=== PATIENT | female | born 1990 | race Hispanic/Latino ===

== ENCOUNTER 2021-06-28 05:36 | Inpatient (IN) | payer OTHER, SELFPAY ==
[2021-06-28] MEDS ORDERED: Boostrix 0.5 ML (Tdap) VIAL ONE (05:41)
[2021-06-28] MEDS ORDERED: CEFAZOLIN 1 GM VIAL ONE ×3 (05:41→17:33)
[2021-06-28] MEDS ORDERED: Ketamine 50 MG/ML (10ML VIAL) ONE (05:57)
[2021-06-28 06:01] LABS: #Basophils 0.1 thou/uL (0.0-0.2); #Eosinphils 0.2 thou/uL (0.0-0.7); #Lymphocytes 3.8 thou/uL (1.20-3.40); #Monocytes 0.5 thou/uL (0.11-0.59); #Neutrophils 9.1 thou/uL (1.40-6.50); %Basophils 0.6 % (0.0-1.0); %Eosinophils 1.7 % (0.0-10.0); %Lymphocytes 27.6 % (21.0-51.0); %Monocytes 3.8 % (0.0-10.0); %Neutrophils 66.2 % (42.0-75.0); Hemoglobin 14.1 g/dL (12.0-16.0); Mean Corpuscular HGB CONC 34.9 g/dL (32.0-36.0); Mean Corpuscular Hemoglobin 31.1 pg (27.0-31.0); Mean Corpuscular Volume 89.1 fL (78.0-98.0); Mean Platelet Volume 7.8 fL (7.4-10.4); Platelet Count 378 thou/uL (130-400); RBC Distribution Width 11.9 % (11.5-14.5); Red Blood Cell (RBC) Count 4.54 mill/uL (4.20-5.40); White Blood Cell (WBC) Count 13.7 thou/uL (4.8-10.8)
[2021-06-28 06:27] LABS: Acetaminophen Less than 6.0 mcg/mL (10.0-30.0); Alcohol Less than 10 mg/dL (Less than 10); Salicylate Less than 8.0 mg/dL (15.0-30.0)
[2021-06-28 07:19] LABS: SARS-CoV-2 NAA Rapid Test Not Detected (NotDetected)
[2021-06-28] MEDS ORDERED: Dextrose 50% Abboject 50 ML SYRINGE SLOW IVP PRN (07:35)
[2021-06-28] MEDS ORDERED: hydrALAZINE 20 MG/ML VIAL SLOW IVP PRN (07:35)
[2021-06-28] MEDS ORDERED: Dextrose 5% in Water 1,000 ML IV PRN (07:35)
[2021-06-28] MEDS ORDERED: traMADol HCl 50 MG TAB PO PRN (07:37)
[2021-06-28] MEDS ORDERED: Cyclobenzaprine 10 MG TAB PO PRN (07:37)
[2021-06-28] MEDS ORDERED: Sodium Chloride 0.9% 1,000 ML IV SCH (07:45)
[2021-06-28] MEDS ORDERED: Fentanyl 100 MCG/2 ML VIAL ONE ×7 (07:49→19:44)
[2021-06-28] MEDS ORDERED: Ketorolac Tromethamine 30 MG/ML VIAL ONE (07:49)
[2021-06-28 07:51] LABS: BHCG - Serum Negative (NEGATIVE); Pregs Control Background? CLEAR/WHITE (CLR/WHITE); Pregs Control Bar Appear? YES (CONTROL BAR)
[2021-06-28] MEDS ORDERED: Fentanyl 250 MCG/5 ML VIAL ONE (07:51)
[2021-06-28] MEDS ORDERED: HYDROmorphone 2 MG/ML VIAL ONE (07:51)
[2021-06-28] MEDS ORDERED: Phenylephrine 10 MG/ML VIAL ONE (07:52)
[2021-06-28] MEDS ORDERED: SUGAMMADEX SODIUM 200 MG/2 ML VIAL ONE (07:52)
[2021-06-28] MEDS ORDERED: Albumin 5% 500 ML ONE (07:52)
[2021-06-28 07:56] LABS: Albumin 3.6 g/dL (3.5-5.0)
[2021-06-28 07:57] LABS: Chloride 109 mmol/L (98-107); Potassium 3.3 mmol/L (3.5-5.1)
[2021-06-28 07:58] LABS: Calcium 8.1 mg/dL (7.8-10.44); Sodium 137 mmol/L (136-145)
[2021-06-28 07:59] LABS: Globulin 2.8 g/dL (2.4-3.5); Glucose 143 mg/dL (70-105); Protein, Total 6.4 g/dL (6.0-8.3)
[2021-06-28 08:00] LABS: Anion Gap 14 mmol/L (10-20); Bilirubin, Total 0.2 mg/dL (0.2-1.2); Carbon Dioxide 17 mmol/L (22-29)
[2021-06-28 08:01] LABS: Alkaline Phosphatase 113 U/L (40-110)
[2021-06-28 08:02] LABS: Calc. Creatinine Clearance 0 mL/min (70-130)
[2021-06-28 08:03] LABS: BUN (Urea Nitrogen) 13 mg/dL (7.0-18.7)
[2021-06-28 08:04] LABS: AST (SGOT) 313 U/L (5-34)
[2021-06-28 08:05] LABS: ALT (SGPT) 204 U/L (8-55); CK (CPK) 207 U/L (29-168)
[2021-06-28 08:09] LABS: Bacteria/HPF None Seen HPF (None Seen); Bilirubin Negative (Negative); Blood, Urine 2+ (Negative); Clarity Clear (Clear); Glucose, Urine (Dipstick) Normal (Negative); Ketone, Urine Negative (Negative); Leukocyte Negative Leu/uL (Negative); Nitrite Negative (Negative); Protein, Urine (Dipstick) 20 mg/dL (Neg-Trace); RBC/HPF Greater than 50 HPF (0-3); Specific Gravity, Urine 1.032 (1.002-1.036); Squamous Epithelial 0-3 HPF (0-3); Urobilinogen Normal mg/dL (Less than 2); WBC/HPF 0-3 HPF (0-3)
[2021-06-28 08:18] LABS: Amphetamine Not Detected (NotDetected); Barbiturates Screen Not Detected (NotDetected); Benzodiazepine Screen Not Detected (NotDetected); Cocaine Metabolite Screen Not Detected (NotDetected); Methadone Not Detected (NotDetected); Methamphetamine Not Detected (NotDetected); Opiate Screen Not Detected (NotDetected); Oxycodone Screen Not Detected (NotDetected); Phencyclidine (PCP) Not Detected (NotDetected); THC/Cannabinoid Screen Not Detected (NotDetected); Tricyclic Screen Not Detected (NotDetected)
[2021-06-28] MEDS ORDERED: Glycopyrrolate 0.2 MG/ML 5 ML SYRINGE ONE (08:58)
[2021-06-28] MEDS ORDERED: PROPOFOL 200 MG/20 ML VIAL ONE (08:58)
[2021-06-28] MEDS ORDERED: Metoprolol Tartrate 5 MG/5 ML VIAL ONE (08:58)
[2021-06-28] MEDS ORDERED: Lidocaine 1% PF 5 ML VIAL ONE (08:58)
[2021-06-28] MEDS ORDERED: Succinylcholine 200 MG/10 ml SYRINGE FS ONE (08:58)
[2021-06-28] MEDS ORDERED: Ondansetron PF 4 MG/2 ML Vial ONE ×3 (08:58→17:44)
[2021-06-28] MEDS ORDERED: Dexamethasone 20 MG/5 ML VIAL ONE (08:58)
[2021-06-28] MEDS ORDERED: Rocuronium Bromide 10 MG/ML (10ML VIAL) ONE (08:58)
[2021-06-28] MEDS ORDERED: Vecuronium 10 MG VIAL ONE (08:58)
[2021-06-28] MEDS ORDERED: Iopamidol-370 76% 500 ML 1 ML ONE (10:38)
[2021-06-28] MEDS ORDERED: Potassium Chloride 40 MEQ in Sodium Chloride 0.9% 250 ML 250 ML IVPB SCH (14:15)
[2021-06-28] MEDS ORDERED: PROPOFOL 20 ML ONE (18:09)
[2021-06-28] MEDS ORDERED: Non-Formulary Medication 1 EACH PO PRN (19:35)
[2021-06-28] MEDS ORDERED: Promethazine HCl 25 MG/ML VIAL IM/IV PRN (19:45)
[2021-06-28] MEDS ORDERED: Ondansetron HCl/PF 4 MG/2 ML Vial IVP PRN (19:45)
[2021-06-28 19:57] LABS: Platelet Count 301 thou/uL (130-400)
[2021-06-28 20:05] LABS: Anion Gap 16 mmol/L (10-20); BUN (Urea Nitrogen) 9 mg/dL (7.0-18.7); Calc. Creatinine Clearance 0 mL/min (70-130); Calcium 7.7 mg/dL (7.8-10.44); Carbon Dioxide 17 mmol/L (22-29); Chloride 109 mmol/L (98-107); Glucose 188 mg/dL (70-105); Magnesium 1.7 mg/dL (1.6-2.6); Potassium 4.3 mmol/L (3.5-5.1); Sodium 138 mmol/L (136-145)
[2021-06-28] MEDS: Famotidine 20 MG TAB PO SCH ×2 (21:28→21:57)
[2021-06-28] MEDS: Gabapentin 100 MG CAP PO SCH ×2 (21:28→21:57)
[2021-06-28] MEDS: Senokot S 8.6-50 MG TAB PO SCH ×2 (21:29→21:56)
[2021-06-28] MEDS: Acetaminophen 500 MG TAB PO SCH ×2 (21:29→21:58)
[2021-06-28] MEDS: Polyethylene Glycol 3350 17 GM Packet PO SCH (21:29)
[2021-06-28] MEDS: Morphine 4 MG/ML VIAL SLOW IVP PRN (21:56)
[2021-06-28] MEDS: traMADol HCl 50 MG TAB PO SCH (21:57)
[2021-06-28] MEDS: traMADol HCl 50 MG TAB PO PRN (21:58)
[2021-06-28 22:02] LABS: Lactic Acid 8.4 mmol/L (0.5-2.2)
[2021-06-28] MEDS ORDERED: Magnesium 2 GM/50 ML 2 GM in Premix Bag 1 BAG IVPB SCH (22:30)
[2021-06-28] MEDS ORDERED: Magnesium Sulfate 2 GM in Sodium Chloride 0.9% 100 ML IVPB SCH (22:30)
[2021-06-28 23:30] LABS: Hemoglobin 11.4 g/dL (12.0-16.0); Mean Corpuscular HGB CONC 34.3 g/dL (32.0-36.0); Mean Corpuscular Hemoglobin 30.4 pg (27.0-31.0); Mean Corpuscular Volume 88.6 fL (78.0-98.0); Mean Platelet Volume 7.3 fL (7.4-10.4); Platelet Count 241 thou/uL (130-400); RBC Distribution Width 12.9 % (11.5-14.5); Red Blood Cell (RBC) Count 3.74 mill/uL (4.20-5.40); White Blood Cell (WBC) Count 14.1 thou/uL (4.8-10.8)
[2021-06-28 23:50] LABS: Lactic Acid 6.6 mmol/L (0.5-2.2)
[2021-06-29] MEDS: Morphine 4 MG/ML VIAL SLOW IVP PRN ×4 (00:03→08:26)
[2021-06-29] MEDS: Sodium Chloride 0.9% 1,000 ML IV SCH ×3 (00:03→18:24)
[2021-06-29] MEDS: Ondansetron PF 4 MG/2 ML Vial IVP PRN (00:03)
[2021-06-29] MEDS: CEFAZOLIN 2 GM in Sodium Chloride 0.9% 100 ML IVPB SCH ×2 (02:26→09:59)
[2021-06-29] MEDS: traMADol HCl 50 MG TAB PO SCH ×2 (02:31→10:00)
[2021-06-29] MEDS: Acetaminophen 500 MG TAB PO SCH (06:08)
[2021-06-29 07:52] LABS: #Lymphocytes 1.8 thou/uL (1.20-3.40); #Monocytes 1.4 thou/uL (0.11-0.59); #Neutrophils 8.9 thou/uL (1.40-6.50); %Basophils 0.1 % (0.0-1.0); %Eosinophils 0.1 % (0.0-10.0); %Lymphocytes 15.1 % (21.0-51.0); %Monocytes 11.5 % (0.0-10.0); %Neutrophils 73.2 % (42.0-75.0); Hemoglobin 10.1 g/dL (12.0-16.0); Mean Corpuscular HGB CONC 34.7 g/dL (32.0-36.0); Mean Corpuscular Hemoglobin 30.3 pg (27.0-31.0); Mean Corpuscular Volume 87.3 fL (78.0-98.0); Mean Platelet Volume 7.6 fL (7.4-10.4); Platelet Count 248 thou/uL (130-400); RBC Distribution Width 13.1 % (11.5-14.5); Red Blood Cell (RBC) Count 3.34 mill/uL (4.20-5.40); White Blood Cell (WBC) Count 12.1 thou/uL (4.8-10.8)
[2021-06-29 08:01] LABS: Lactic Acid 3.5 mmol/L (0.5-2.2)
[2021-06-29 08:03] LABS: PTT 29.9 sec (22.9-36.1)
[2021-06-29 08:04] LABS: Prothrombin Time 13.4 sec (12.0-14.7)
[2021-06-29 08:15] LABS: Anion Gap 15 mmol/L (10-20); BUN (Urea Nitrogen) 7 mg/dL (7.0-18.7); CK (CPK) 1822 U/L (29-168); Calc. Creatinine Clearance 180 mL/min (70-130); Calcium 7.8 mg/dL (7.8-10.44); Carbon Dioxide 17 mmol/L (22-29); Chloride 105 mmol/L (98-107); Glucose 166 mg/dL (70-105); Magnesium 2.2 mg/dL (1.6-2.6); Phosphorus 2.2 mg/dL (2.3-4.7); Potassium 4.1 mmol/L (3.5-5.1); Sodium 133 mmol/L (136-145)
[2021-06-29] MEDS: Famotidine 20 MG TAB PO SCH ×2 (08:23→21:17)
[2021-06-29] MEDS: Senokot S 8.6-50 MG TAB PO SCH ×2 (08:23→21:18)
[2021-06-29] MEDS: Gabapentin 100 MG CAP PO SCH (08:24)
[2021-06-29] MEDS: Polyethylene Glycol 3350 17 GM Packet PO SCH ×2 (08:25→19:06)
[2021-06-29] MEDS ORDERED: FLU VACC QS2021-22(6MOS UP)/PF 60 MCG/0.5 ML SYRINGE IM ONE (09:00)
[2021-06-29] MEDS: traMADol HCl 50 MG TAB PO PRN (10:00)
[2021-06-29] MEDS ORDERED: Acetaminophen/Codeine 30-300mg Tablet PO PRN (10:32)
[2021-06-29] MEDS ORDERED: Gabapentin 100 MG CAP PO SCH (10:33)
[2021-06-29] MEDS: Gabapentin 300 MG CAP PO SCH ×4 (10:38→23:09)
[2021-06-29] MEDS ORDERED: Sodium Phosphate 30 MMOL in Sodium Chloride 0.9% 250 ML 250 ML IVPB SCH (11:00)
[2021-06-29] MEDS: Acetaminophen/Codeine 30-300mg Tablet PO SCH ×3 (11:35→23:16)
[2021-06-29] MEDS: Acetaminophen 325 MG TAB PO SCH ×3 (11:35→23:16)
[2021-06-29] MEDS ORDERED: Acetaminophen 500 MG TAB PO SCH (12:00)
[2021-06-29 14:37] LABS: Actual Bicarbonate (HCO3a) 20.1 mEq/L (22-28); Analyzer IN Cardio OR; Base Excess (BEa) -6.3 mEq/L (-2.0 to +3.0); CO2 Tension 43.9 mmHg (35.0-45.0); Calcium, Ionized (arterial) 1.07 mmol/L (1.12-1.30); Carboxyhemoglobin (COHb) 0.1 gm% (0.0-3.0); Hemoglobin (Hb) 10.5 g/dL (12.0-16.0); O2 Tension (PaO2), arterial 83.1 mmHg (80.0-100.0); Potassium - ABG Lab 4.38 mmol/L (3.70-5.30); Puncture Site Arterial Line; pH, Arterial 7.28 (7.35-7.45)
[2021-06-29] MEDS ORDERED: Morphine 4 MG/ML VIAL SLOW IVP PRN ×2 (21:19)
[2021-06-29] MEDS ORDERED: Sodium Chloride 0.9% 500 ML IV SCH (21:30)
[2021-06-29 22:01] LABS: Anion Gap 13 mmol/L (10-20); BUN (Urea Nitrogen) 6 mg/dL (7.0-18.7); Calc. Creatinine Clearance 217 mL/min (70-130); Calcium 7.4 mg/dL (7.8-10.44); Carbon Dioxide 19 mmol/L (22-29); Chloride 106 mmol/L (98-107); Glucose 124 mg/dL (70-105); Magnesium 2.1 mg/dL (1.6-2.6); Potassium 3.6 mmol/L (3.5-5.1); Sodium 134 mmol/L (136-145)
[2021-06-29 22:06] LABS: Phosphorus 1.8 mg/dL (2.3-4.7)
[2021-06-29 22:18] LABS: Hemoglobin 7.6 g/dL (12.0-16.0)
[2021-06-29] MEDS ORDERED: Potassium Phosphate 30 MMOL in Sodium Chloride 0.9% 250 ML 250 ML IVPB SCH (23:00)
[2021-06-30 03:16] LABS: #Eosinphils 0.1 thou/uL (0.0-0.7); #Lymphocytes 2.6 thou/uL (1.20-3.40); #Monocytes 0.9 thou/uL (0.11-0.59); #Neutrophils 7.2 thou/uL (1.40-6.50); %Eosinophils 0.5 % (0.0-10.0); %Lymphocytes 24.5 % (21.0-51.0); %Monocytes 7.9 % (0.0-10.0); %Neutrophils 67.1 % (42.0-75.0); Hemoglobin 8.2 g/dL (12.0-16.0); Mean Corpuscular HGB CONC 35.6 g/dL (32.0-36.0); Mean Corpuscular Hemoglobin 31.1 pg (27.0-31.0); Mean Corpuscular Volume 87.3 fL (78.0-98.0); Mean Platelet Volume 7.3 fL (7.4-10.4); Platelet Count 221 thou/uL (130-400); RBC Distribution Width 12.9 % (11.5-14.5); Red Blood Cell (RBC) Count 2.62 mill/uL (4.20-5.40); White Blood Cell (WBC) Count 10.7 thou/uL (4.8-10.8)
[2021-06-30 03:54] LABS: Anion Gap 11 mmol/L (10-20); BUN (Urea Nitrogen) 5 mg/dL (7.0-18.7); CK (CPK) 1222 U/L (29-168); Calc. Creatinine Clearance 232 mL/min (70-130); Calcium 7.3 mg/dL (7.8-10.44); Carbon Dioxide 22 mmol/L (22-29); Chloride 107 mmol/L (98-107); Glucose 125 mg/dL (70-105); Phosphorus 2.9 mg/dL (2.3-4.7); Potassium 3.8 mmol/L (3.5-5.1); Sodium 136 mmol/L (136-145)
[2021-06-30] MEDS: Acetaminophen/Codeine 30-300mg Tablet PO SCH ×3 (06:06→19:13)
[2021-06-30] MEDS: Acetaminophen 325 MG TAB PO SCH ×4 (06:09→23:12)
[2021-06-30] MEDS: Sodium Chloride 0.9% 1,000 ML IV SCH ×4 (06:09→22:05)
[2021-06-30] MEDS ORDERED: Ferrous Sulfate 325 MG TAB PO SCH (08:00)
[2021-06-30] MEDS: Gabapentin 300 MG CAP PO SCH ×3 (09:36→20:20)
[2021-06-30] MEDS: Famotidine 20 MG TAB PO SCH (09:36)
[2021-06-30] MEDS: Ascorbic Acid 500 mg Chewable Tablet PO SCH ×2 (09:36→20:20)
[2021-06-30] MEDS: Polyethylene Glycol 3350 17 GM Packet PO SCH (09:37)
[2021-06-30] MEDS: Senokot S 8.6-50 MG TAB PO SCH ×2 (09:37→20:20)
[2021-06-30] MEDS ORDERED: Ibuprofen 200 MG TAB PO SCH (11:15)
[2021-06-30] MEDS: Ibuprofen 200 MG TAB PO SCH ×2 (17:28→21:39)
[2021-06-30] MEDS: Ferrous Sulfate 325 MG TAB PO SCH (20:19)
[2021-07-01] MEDS: Acetaminophen/Codeine 30-300mg Tablet PO SCH ×4 (00:24→17:58)
[2021-07-01] MEDS: Sodium Chloride 0.9% 1,000 ML IV SCH ×2 (06:11→14:31)
[2021-07-01] MEDS: Acetaminophen 325 MG TAB PO SCH ×3 (06:13→17:58)
[2021-07-01] MEDS: Senokot S 8.6-50 MG TAB PO SCH ×2 (08:58→21:20)
[2021-07-01] MEDS: Gabapentin 300 MG CAP PO SCH ×3 (08:58→21:19)
[2021-07-01] MEDS: Ibuprofen 200 MG TAB PO SCH ×3 (08:58→21:34)
[2021-07-01] MEDS: Ascorbic Acid 500 mg Chewable Tablet PO SCH ×2 (08:59→21:20)
[2021-07-01] MEDS: Ferrous Sulfate 325 MG TAB PO SCH ×2 (08:59→21:20)
[2021-07-01] MEDS: Polyethylene Glycol 3350 17 GM Packet PO SCH (08:59)
[2021-07-02] MEDS: Acetaminophen/Codeine 30-300mg Tablet PO SCH ×2 (00:05→05:47)
[2021-07-02] MEDS: Acetaminophen 325 MG TAB PO SCH ×4 (00:05→18:23)
[2021-07-02] MEDS: Sodium Chloride 0.9% 1,000 ML IV SCH ×2 (00:21→07:02)
[2021-07-02] MEDS: Polyethylene Glycol 3350 17 GM Packet PO SCH (08:42)
[2021-07-02] MEDS: Senokot S 8.6-50 MG TAB PO SCH ×2 (08:43→21:33)
[2021-07-02] MEDS: Gabapentin 300 MG CAP PO SCH ×3 (08:43→21:34)
[2021-07-02] MEDS: Ibuprofen 200 MG TAB PO SCH ×3 (08:46→21:33)
[2021-07-02] MEDS: Ascorbic Acid 500 mg Chewable Tablet PO SCH ×2 (08:47→21:34)
[2021-07-02] MEDS: Ferrous Sulfate 325 MG TAB PO SCH ×2 (08:47→21:34)
[2021-07-02] MEDS: Enoxaparin Sodium 40 MG/0.4 ML SYRINGE SC SCH (09:44)
[2021-07-02] MEDS ORDERED: FLU VACC QS2021-22(6MOS UP)/PF 60 MCG/0.5 ML SYRINGE IM ONE (10:53)
[2021-07-02] MEDS: traMADol HCl 50 MG TAB PO SCH ×2 (11:33→18:23)
[2021-07-03] MEDS: traMADol HCl 50 MG TAB PO SCH ×5 (00:29→23:55)
[2021-07-03] MEDS: Acetaminophen 325 MG TAB PO SCH ×5 (00:30→23:53)
[2021-07-03 05:46] LABS: #Basophils 0.1 thou/uL (0.0-0.2); #Eosinphils 0.4 thou/uL (0.0-0.7); #Lymphocytes 3.2 thou/uL (1.20-3.40); #Monocytes 0.6 thou/uL (0.11-0.59); #Neutrophils 8.2 thou/uL (1.40-6.50); %Basophils 0.4 % (0.0-1.0); %Eosinophils 3.5 % (0.0-10.0); %Lymphocytes 25.4 % (21.0-51.0); %Neutrophils 65.6 % (42.0-75.0); Hemoglobin 8.1 g/dL (12.0-16.0); Mean Corpuscular HGB CONC 34.3 g/dL (32.0-36.0); Mean Corpuscular Hemoglobin 30.5 pg (27.0-31.0); Mean Platelet Volume 6.8 fL (7.4-10.4); Platelet Count 403 thou/uL (130-400); RBC Distribution Width 13.2 % (11.5-14.5); Red Blood Cell (RBC) Count 2.65 mill/uL (4.20-5.40); White Blood Cell (WBC) Count 12.5 thou/uL (4.8-10.8)
[2021-07-03] MEDS: Senokot S 8.6-50 MG TAB PO SCH ×2 (09:57→21:03)
[2021-07-03] MEDS: Gabapentin 300 MG CAP PO SCH ×3 (09:57→21:03)
[2021-07-03] MEDS: Ibuprofen 200 MG TAB PO SCH ×3 (09:58→21:04)
[2021-07-03] MEDS: Ascorbic Acid 500 mg Chewable Tablet PO SCH ×2 (09:59→21:03)
[2021-07-03] MEDS: Ferrous Sulfate 325 MG TAB PO SCH ×2 (09:59→21:04)
[2021-07-03] MEDS: Polyethylene Glycol 3350 17 GM Packet PO SCH (09:59)
[2021-07-03] MEDS: Enoxaparin Sodium 40 MG/0.4 ML SYRINGE SC SCH (10:00)
[2021-07-03] MEDS: Ondansetron PF 4 MG/2 ML Vial IVP PRN (13:18)
[2021-07-04] MEDS: traMADol HCl 50 MG TAB PO SCH ×3 (05:29→17:34)
[2021-07-04] MEDS: Acetaminophen 325 MG TAB PO SCH ×3 (05:30→17:33)
[2021-07-04] MEDS: Enoxaparin Sodium 40 MG/0.4 ML SYRINGE SC SCH (09:10)
[2021-07-04] MEDS: Polyethylene Glycol 3350 17 GM Packet PO SCH (09:10)
[2021-07-04] MEDS: Ibuprofen 200 MG TAB PO SCH ×3 (09:13→19:44)
[2021-07-04] MEDS: Senokot S 8.6-50 MG TAB PO SCH ×2 (09:14→19:44)
[2021-07-04] MEDS: Ferrous Sulfate 325 MG TAB PO SCH ×2 (09:14→19:45)
[2021-07-04] MEDS: Gabapentin 300 MG CAP PO SCH ×3 (09:14→19:44)
[2021-07-04] MEDS: Ascorbic Acid 500 mg Chewable Tablet PO SCH ×2 (09:14→19:44)
[2021-07-05] MEDS: traMADol HCl 50 MG TAB PO SCH ×4 (00:12→18:36)
[2021-07-05] MEDS: Acetaminophen 325 MG TAB PO SCH ×4 (00:12→18:35)
[2021-07-05] MEDS: Enoxaparin Sodium 40 MG/0.4 ML SYRINGE SC SCH (08:53)
[2021-07-05] MEDS: Ibuprofen 200 MG TAB PO SCH ×3 (08:54→21:29)
[2021-07-05] MEDS: Ascorbic Acid 500 mg Chewable Tablet PO SCH ×2 (08:55→21:28)
[2021-07-05] MEDS: Gabapentin 300 MG CAP PO SCH ×3 (08:55→21:30)
[2021-07-05] MEDS: Polyethylene Glycol 3350 17 GM Packet PO SCH (08:55)
[2021-07-05] MEDS: Ferrous Sulfate 325 MG TAB PO SCH ×2 (08:55→21:28)
[2021-07-05] MEDS: Senokot S 8.6-50 MG TAB PO SCH ×2 (08:56→21:28)
[2021-07-06] MEDS: traMADol HCl 50 MG TAB PO SCH ×5 (00:02→23:44)
[2021-07-06] MEDS: Acetaminophen 325 MG TAB PO SCH ×5 (00:03→23:44)
[2021-07-06] MEDS ORDERED: Loperamide HCl 2 MG CAP PO PRN (07:48)
[2021-07-06] MEDS: Enoxaparin Sodium 40 MG/0.4 ML SYRINGE SC SCH (09:05)
[2021-07-06] MEDS: Gabapentin 300 MG CAP PO SCH ×3 (09:06→20:28)
[2021-07-06] MEDS: Ascorbic Acid 500 mg Chewable Tablet PO SCH ×2 (09:06→20:28)
[2021-07-06] MEDS: Polyethylene Glycol 3350 17 GM Packet PO SCH (09:07)
[2021-07-06] MEDS: Ibuprofen 200 MG TAB PO SCH ×3 (09:07→20:28)
[2021-07-06] MEDS: Ferrous Sulfate 325 MG TAB PO SCH ×2 (09:07→20:28)
[2021-07-06] MEDS: Senokot S 8.6-50 MG TAB PO SCH ×2 (09:08→20:28)
[2021-07-06 11:51] LABS: SARS-CoV-2 PCR by NAA Not Detected (NotDetected)
[2021-07-07] MEDS: traMADol HCl 50 MG TAB PO SCH ×3 (05:22→18:14)
[2021-07-07] MEDS: Acetaminophen 325 MG TAB PO SCH ×3 (05:22→18:15)
[2021-07-07] MEDS: Ascorbic Acid 500 mg Chewable Tablet PO SCH ×2 (09:05→20:27)
[2021-07-07] MEDS: Ibuprofen 200 MG TAB PO SCH ×3 (09:05→20:27)
[2021-07-07] MEDS: Ferrous Sulfate 325 MG TAB PO SCH ×2 (09:05→20:27)
[2021-07-07] MEDS: Gabapentin 300 MG CAP PO SCH ×3 (09:06→20:27)
[2021-07-07] MEDS: Polyethylene Glycol 3350 17 GM Packet PO SCH (09:07)
[2021-07-07] MEDS: Enoxaparin Sodium 40 MG/0.4 ML SYRINGE SC SCH (09:08)
[2021-07-07] MEDS: Senokot S 8.6-50 MG TAB PO SCH ×2 (09:08→20:26)
[2021-07-08] MEDS: Acetaminophen 325 MG TAB PO SCH ×3 (00:42→11:31)
[2021-07-08] MEDS: traMADol HCl 50 MG TAB PO SCH ×3 (00:43→11:31)
[2021-07-08] MEDS: Senokot S 8.6-50 MG TAB PO SCH (09:10)
[2021-07-08] MEDS: Polyethylene Glycol 3350 17 GM Packet PO SCH (09:10)
[2021-07-08] MEDS: Ferrous Sulfate 325 MG TAB PO SCH (09:12)
[2021-07-08] MEDS: Ascorbic Acid 500 mg Chewable Tablet PO SCH (09:12)
[2021-07-08] MEDS: Ibuprofen 200 MG TAB PO SCH ×2 (09:12→15:53)
[2021-07-08] MEDS: Gabapentin 300 MG CAP PO SCH ×2 (09:12→15:53)
[2021-07-08] MEDS: Enoxaparin Sodium 40 MG/0.4 ML SYRINGE SC SCH (09:13)
[2021-07-08 13:55] VITALS: BP 103/64; TEMP 98.1
== END 2021-07-08 17:31 | disposition home or self-care (01) | DRG 956 ==
LOC: ERS 05:36 → EDBD 05:36 → SDC 08:44 → SURG A 09:00
PROVIDERS: ADMIT Surgery; ATTEND Surgery
PROC: 0QSB04Z Reposition Right Lower Femur with Internal Fixation Device, Open Approach (ICD-10-PCS; principal; 2021-06-28)
PROC: 0QSG04Z Reposition Right Tibia with Internal Fixation Device, Open Approach (ICD-10-PCS; 2021-06-28)
PROC: 0QS606Z Reposition Right Upper Femur with Intramedullary Internal Fixation Device, Open Approach (ICD-10-PCS; 2021-06-28)
PROC: 0YQFXZZ Repair Right Knee Region, External Approach (ICD-10-PCS; 2021-06-28)
PROC: 30233N1 Transfusion of Nonautologous Red Blood Cells into Peripheral Vein, Percutaneous Approach (ICD-10-PCS; 2021-06-28)
DX: S82.874 Nondisplaced pilon fracture of right tibia (principal); S82.831C Other fracture of upper and lower end of right fibula, initial encounter for open fracture type IIIA, IIIB, or IIIC; T79.1XXA Fat embolism (traumatic), initial encounter; S72.091A Other fracture of head and neck of right femur, initial encounter for closed fracture; S72.491 Other fracture of lower end of right femur; S72.41 Unspecified condyle fracture of lower end of femur; Z20.822 Contact with and (suspected) exposure to COVID-19; S81.011A Laceration without foreign body, right knee, initial encounter; S52.121A Displaced fracture of head of right radius, initial encounter for closed fracture; T80.89XA Other complications following infusion, transfusion and therapeutic injection, initial encounter; Y83.8 Other surgical procedures as the cause of abnormal reaction of the patient, or of later complication, without mention of misadventure at the time of the procedure; V46.5XXA Car driver injured in collision with other nonmotor vehicle in traffic accident, initial encounter; S52.124A Nondisplaced fracture of head of right radius, initial encounter for closed fracture
CPT/HCPCS: 27503; 36415; 36430; 51702; 70450; 71045; 71260; 72125; 72170; 74177; 76000; 80048; 80053; 80306; 80307; 81003; 81015; 82550; 82805; 83605; 83735; 84100; 84443; 84703; 85025; 85610; 85730; 86850; 86900; 86901; 90471; 90715; 93005; 96365; 96375; 99152; 99153; C1713; G0390; J0690; J1100; J1170; J1650; J1885; J2270; J2370; J2405; J2704; J3010; J3475; J3490; J7050; P9016; P9045; Q9967; U0002; U0003; U0005

== ENCOUNTER 2021-10-01 14:50 | Emergency (ER) | payer SELFPAY ==
[2021-10-01 16:13] LABS: #Eosinphils 0.1 thou/uL (0.0-0.7); #Lymphocytes 1.9 thou/uL (1.20-3.40); #Monocytes 0.4 thou/uL (0.11-0.59); #Neutrophils 5.2 thou/uL (1.40-6.50); %Basophils 0.1 % (0.0-1.0); %Eosinophils 1.8 % (0.0-10.0); %Monocytes 4.8 % (0.0-10.0); %Neutrophils 68.2 % (42.0-75.0); Hemoglobin 12.2 g/dL (12.0-16.0); Mean Corpuscular HGB CONC 33.2 g/dL (32.0-36.0); Mean Corpuscular Hemoglobin 27.7 pg (27.0-31.0); Mean Corpuscular Volume 83.4 fL (78.0-98.0); Mean Platelet Volume 7.4 fL (7.4-10.4); Platelet Count 472 thou/uL (130-400); Red Blood Cell (RBC) Count 4.39 mill/uL (4.20-5.40); White Blood Cell (WBC) Count 7.6 thou/uL (4.8-10.8)
[2021-10-01 16:32] LABS: ALT (SGPT) 14 U/L (8-55); AST (SGOT) 12 U/L (5-34); Albumin 4.3 g/dL (3.5-5.0); Alkaline Phosphatase 111 U/L (40-110); Anion Gap 13 mmol/L (10-20); BUN (Urea Nitrogen) 7 mg/dL (7.0-18.7); Bilirubin, Total 0.2 mg/dL (0.2-1.2); CRP (Inflammatory) 2.52 mg/dL (= or < 0.5); Calc. Creatinine Clearance 0 mL/min (70-130); Calcium 10.4 mg/dL (7.8-10.44); Carbon Dioxide 26 mmol/L (22-29); Chloride 104 mmol/L (98-107); Globulin 3.6 g/dL (2.4-3.5); Glucose 89 mg/dL (70-105); Potassium 3.6 mmol/L (3.5-5.1); Protein, Total 7.9 g/dL (6.0-8.3); Sodium 139 mmol/L (136-145)
[2021-10-01] MEDS ORDERED: Lidocaine 1% PF 5 ML VIAL ONE (19:48)
== END 2021-10-01 20:50 | disposition home or self-care (01) ==
LOC: ERS 14:50
DX: L02.415 Cutaneous abscess of right lower limb (principal)
CPT/HCPCS: 10060; 36415; 80053; 85025; 85652; 86140